=== PATIENT | female | born 1950 | race Two or more races ===

== ENCOUNTER 2025-08-26 20:04 | Inpatient (IN) | payer OTHER ==
[~2025-08-26] VITALS: Ht 157.5 cm; Wt 86.2 kg
--- NOTE | 2025-08-26 22:02 | NUR ---
SE LLAMA PACIENTE LAKESHIA REFIERE TIENE QUE IR AL SAI. SE ORIENTA A NOTIFICAR AL ESTAR DISPONIBLE PARA REALIZAR TRIAGE.
[2025-08-26] MEDS ORDERED: SYNTHROID125 MCG PO (22:28)
[2025-08-26] MEDS ORDERED: PLAVIX75 MG (22:29)
[2025-08-26] MEDS ORDERED: TOPROL XL25 M1 (22:31)
[2025-08-26] MEDS ORDERED: SYNJARDY 12.5-1 EAC1 PO (22:33)
[2025-08-26] MEDS ORDERED: MICARDIS HCT 41 EACH PO (22:34)
[2025-08-26] MEDS ORDERED: ALPHA LIPOIC A600 MG (22:34)
[2025-08-26] MEDS ORDERED: REGLAN5 MG/5 ML PO (22:34)
[2025-08-26] MEDS ORDERED: MICARDIS40 MG (22:34)
[2025-08-26] MEDS ORDERED: DEXILANT30 MG (22:35)
[2025-08-26] MEDS ORDERED: PEPCID20 MG PO (22:35)
[2025-08-26] MEDS ORDERED: LINZESS72 MCG PO (22:36)
[2025-08-26] MEDS ORDERED: SYMBICORT 16010.2 GM (22:36)
[2025-08-26] MEDS ORDERED: VITAL-D RX TAB1 EACH (22:36)
[2025-08-26] MEDS ORDERED: CELLCEPT500 MG (22:36)
[2025-08-26] MEDS ORDERED: MILLIPRED5 MG (22:37)
[2025-08-27 01:26] LABS: INR 1.0
--- NOTE | 2025-08-27 01:27 | NUR ---
SE ORIENTA A PACIENTE SOBRE TRATAMIENTO MEDICO, REFIERE ENTENDER. SE REALIZAN MUESTRAS DE LABORATORIO BAJO MEDIDAS ASEPTICAS. SE COORDINA CT. PACIENTE MANEJADA POR . PENDIENTE RE-EVALUACION MEDICA.
[2025-08-27 01:31] LABS: ALT/SGPT 17.0 U/L (12-78); AST/SGOT 8.0 U/L (15-37); BILIRUBIN TOTAL 0.33 mg/dL (0.3-1.2); BUN CREA RATIO 17.0 (7.0-25.0); CREATININE SERUM 0.82 mg/dL (0.55-1.02); GFR 68.53; GLOBULINA 4.6 G/DL (2.4-3.5); GLUCOSE FASTING 104.0 mg/dL (65-100); OSMOLALITY SERUM 280.0 MOSM/KG (275-295)
[2025-08-27 01:53] LABS: BASO % 0.5 % (0.1-1.2); EOS # 0.16 (0.04-0.54); EOS % 1.6 % (0.7-7.0); LYMPH # 2.65 (1.18-3.74); LYMPH % 27.1 % (19.3-53.1); MEAN PLATELET VOLUME 10.10 fl (9.4-12.4); MONO # 0.95 (0.24-0.82); MONO % 9.7 % (4.7-12.5); NEUT # 5.92 (1.56-6.13); NEUT % 60.7 % (34.0-71.1); RED CELL DISTRIBUTION WIDTH 15.1 % (11.6-14.4)
[2025-08-27 03:03] LABS: URINE APPEARANCE Clear; URINE BILIRRUBIN Negative (NEGATIVE); URINE BLOOD Small; URINE COLOR Yellow; URINE KETONE Negative (NEGATIVE); URINE LEUKOCYTE Moderate; URINE NITRATE Negative; URINE PROTEIN Negative (NEGATIVE); URINE UROBILINOGEN 0.2 E.U./dl
[2025-08-27 03:04] LABS: URINE BACTERIA 338.4 uL (0.0-1933); URINE EPITHELIAL CELLS 4.6 uL (0.0-38.8); URINE RBC 10.1 uL (0.0-20.8); URINE WBC 73.3 uL (0.0-23.2)
[2025-08-27 03:12] LABS: URINE CAST 0.14 uL (0.0-1.40); URINE GLUCOSE 250 MG/DL (NEGATIVE)
[2025-08-27] MEDS ORDERED: CIPROFLOXACIN IN 5 % DEXTROSE 200 ML IV SCH (05:43)
[2025-08-27] MEDS ORDERED: 0.9 % SODIUM CHLORIDE 1,000 ML IV ONE (05:45)
--- NOTE | 2025-08-27 08:08 | NUR ---
SE RECIBE PACIENTE ALERTA Y ORIENTADO X3. LA MISMA CANALIZADA EN BRAZO WILMER # 18 PATENTE Y OMER DE DOLOR BAJANDO CON UN 0.9NSS @ 125 ML/HR. EN ESPERA DE CONSULTA CON CIRUGIA DR. ANTONIO
[2025-08-27] MEDS ORDERED: METRONIDAZOLE/SODIUM CHLORIDE 500 MG/100 ML PIGGYBACK IV ONE (16:47)
[2025-08-27] MEDS ORDERED: 0.9 % SODIUM CHLORIDE 1,000 ML IV SCH (18:15)
[2025-08-27] MEDS ORDERED: DEXTROSE 50 % IN WATER 0.5 G/ML DISP.SYRIN IV PRN (18:30)
[2025-08-27] MEDS ORDERED: INSULIN LISPRO 1,000 UNIT/10 ML UNITS SUBCUTANEO PRN (18:30)
[2025-08-27] MEDS ORDERED: ACETAMINOPHEN 325 MG TABLET PO PRN (18:30)
[2025-08-27] MEDS ORDERED: ONDANSETRON HCL 4 MG in 0.9 % SODIUM CHLORIDE 50 ML IV PRN (18:30)
[2025-08-27] MEDS ORDERED: ENALAPRILAT DIHYDRATE 1.25 MG/ML VIAL IV PRN (18:30)
[2025-08-27] MEDS ORDERED: PIPERACILLIN/TAZOBACTAM SODIUM 3.375 GM in DEXTROSE 5 % IN WATER 100 ML IV SCH (19:50)
[2025-08-27 20:22] VITALS: BP 100/70
[2025-08-27 22:55] VITALS: BP 116/78; O2SAT 97
[2025-08-28 01:18] VITALS: BP 118/67; O2SAT 98
[2025-08-28 07:53] LABS: BASO % 0.6 % (0.1-1.2); EOS # 0.16 (0.04-0.54); EOS % 2.5 % (0.7-7.0); LYMPH # 1.82 (1.18-3.74); LYMPH % 28.3 % (19.3-53.1); MEAN PLATELET VOLUME 9.90 fl (9.4-12.4); MONO # 0.66 (0.24-0.82); MONO % 10.2 % (4.7-12.5); NEUT # 3.73 (1.56-6.13); NEUT % 57.9 % (34.0-71.1); RED CELL DISTRIBUTION WIDTH 15.1 % (11.6-14.4)
[2025-08-28 08:10] LABS: BUN CREA RATIO 15.0 (7.0-25.0); CREATININE SERUM 0.82 mg/dL (0.55-1.02); GFR 68.53; GLUCOSE FASTING 92.0 mg/dL (65-100); OSMOLALITY SERUM 288.0 MOSM/KG (275-295)
[2025-08-28] MEDS ORDERED: ENOXAPARIN SODIUM 30 MG/0.3 ML SYRINGE SUBCUTANEO SCH (09:00)
[2025-08-28 09:44] VITALS: BP 130/78; O2SAT 95
[2025-08-28 11:29] LABS: ERYTHROCYTE SEDIMENTATION RATE 52 mm/hr (0-30)
[2025-08-28] MEDS ORDERED: METOCLOPRAMIDE HCL 10 MG TABLET PO SCH (17:00)
[2025-08-28] MEDS ORDERED: AA 4.25%/CAL/LYTES/DEXT 5% 1,000 ML PERIFERAL SCH (17:00)
[2025-08-28] MEDS ORDERED: ACETAMINOPHEN 500 MG GEL..CAP PO PRN (17:15)
[2025-08-28 17:46] VITALS: BP 119/78; O2SAT 97
[2025-08-28 17:55] LABS: CHOL HDL RATIO 2.9 (0-5.0); HDL 53.0 mg/dl (40-60); LDL 81.0 mg/dl (0-130); VLDL 18.0 (0-39)
[2025-08-29 00:30] VITALS: BP 130/78; O2SAT 96
[2025-08-29] MEDS ORDERED: LEVOTHYROXINE SODIUM 125 MCG TABLET PO SCH (06:00)
[2025-08-29 08:49] VITALS: BP 142/83; O2SAT 96
[2025-08-29] MEDS ORDERED: METOPROLOL TARTRATE 25 MG TABLET PO SCH (09:00)
[2025-08-29] MEDS ORDERED: PREDNISONE 5 MG TABLET PO SCH (09:00)
[2025-08-29] MEDS ORDERED: CHOLECALCIFEROL (VITAMIN D3) 5,000 UNITS TABLET PO SCH (09:00)
[2025-08-29 16:00] VITALS: BP 124/86; O2SAT 96
[2025-08-30 17:58] VITALS: BP 121/75; O2SAT 94
[2025-08-31 02:18] VITALS: BP 125/71; O2SAT 97
[2025-08-31 08:13] LABS: BASO % 0.4 % (0.1-1.2); EOS # 0.16 (0.04-0.54); EOS % 2.1 % (0.7-7.0); LYMPH # 1.73 (1.18-3.74); LYMPH % 22.4 % (19.3-53.1); MEAN PLATELET VOLUME 10.20 fl (9.4-12.4); MONO # 0.87 (0.24-0.82); MONO % 11.3 % (4.7-12.5); NEUT # 4.89 (1.56-6.13); NEUT % 63.4 % (34.0-71.1); RED CELL DISTRIBUTION WIDTH 15.3 % (11.6-14.4)
[2025-08-31 08:54] LABS: ALT/SGPT 14.0 U/L (12-78); AST/SGOT 11.0 U/L (15-37); BILIRUBIN TOTAL 0.76 mg/dL (0.3-1.2); BUN CREA RATIO 21.0 (7.0-25.0); CREATININE SERUM 0.89 mg/dL (0.55-1.02); GFR 62.35; GLOBULINA 3.5 G/DL (2.4-3.5); GLUCOSE FASTING 94.0 mg/dL (65-100); OSMOLALITY SERUM 281.0 MOSM/KG (275-295)
[2025-08-31 16:47] VITALS: BP 142/85; O2SAT 96
[2025-08-31] MEDS ORDERED: AA 2.36%/D6.8W/FAT/E-LYTES NO9 1,440 ML IV SCH (17:00)
[2025-09-01 00:45] VITALS: BP 113/72; O2SAT 97
[2025-09-01 08:00] VITALS: BP 138/68; O2SAT 95
[2025-09-01] MEDS ORDERED: CHOLECALCIFEROL (VITAMIN D3) 5,000 UNITS TABLET PO SCH (09:00)
[2025-09-01 16:56] VITALS: BP 110/64; O2SAT 95
[2025-09-02 00:36] VITALS: BP 133/76; O2SAT 97
[2025-09-02 06:57] LABS: BASO % 0.4 % (0.1-1.2); EOS # 0.15 (0.04-0.54); EOS % 2.0 % (0.7-7.0); LYMPH # 1.47 (1.18-3.74); LYMPH % 20.1 % (19.3-53.1); MEAN PLATELET VOLUME 10.50 fl (9.4-12.4); MONO # 0.69 (0.24-0.82); MONO % 9.4 % (4.7-12.5); NEUT # 4.97 (1.56-6.13); NEUT % 67.8 % (34.0-71.1); RED CELL DISTRIBUTION WIDTH 15.2 % (11.6-14.4)
[2025-09-02 07:20] LABS: ALT/SGPT 12.0 U/L (12-78); AST/SGOT 14.0 U/L (15-37); BILIRUBIN TOTAL 0.43 mg/dL (0.3-1.2); BUN CREA RATIO 20.0 (7.0-25.0); CREATININE SERUM 0.66 mg/dL (0.55-1.02); GFR 88.03; GLOBULINA 3.2 G/DL (2.4-3.5); GLUCOSE FASTING 110.0 mg/dL (65-100); OSMOLALITY SERUM 286.0 MOSM/KG (275-295)
[2025-09-02] MEDS ORDERED: ENOXAPARIN SODIUM 40 MG/0.4 ML SYRINGE SUBCUTANEO SCH (09:00)
[2025-09-02 11:02] VITALS: BP 138/81; O2SAT 98
[2025-09-02] MEDS ORDERED: POTASSIUM CHLORIDE IN WATER 100 ML IV NR (17:00)
[2025-09-02 18:13] VITALS: BP 132/82; O2SAT 97
[2025-09-03 01:07] VITALS: BP 130/74; O2SAT 99
[2025-09-03 07:51] VITALS: BP 129/80; O2SAT 97
[2025-09-03] MEDS ORDERED: DIPHENHYDRAMINE HCL 50 MG/ML VIAL 1ML IV NR (13:15)
[2025-09-03] MEDS ORDERED: METHYLPREDNISOLONE SOD SUCC 40 MG VIAL IV NR (13:15)
[2025-09-03] MEDS ORDERED: DIATRIZOATE MEGLUMINE, SODIUM 30 ML BOTTLE PO NR (14:15)
[2025-09-03 16:00] VITALS: BP 141/82; O2SAT 97
[2025-09-04 00:30] VITALS: BP 146/81; O2SAT 96
[2025-09-04 07:50] LABS: BASO % 0.3 % (0.1-1.2); EOS # 0.00 (0.04-0.54); EOS % 0.0 % (0.7-7.0); LYMPH # 0.58 (1.18-3.74); LYMPH % 9.3 % (19.3-53.1); MEAN PLATELET VOLUME 10.40 fl (9.4-12.4); MONO # 0.22 (0.24-0.82); MONO % 3.5 % (4.7-12.5); NEUT # 5.41 (1.56-6.13); NEUT % 86.6 % (34.0-71.1); RED CELL DISTRIBUTION WIDTH 14.7 % (11.6-14.4)
[2025-09-04 08:26] LABS: ALT/SGPT 11.0 U/L (12-78); AST/SGOT 8.0 U/L (15-37); BILIRUBIN TOTAL 0.36 mg/dL (0.3-1.2); BUN CREA RATIO 16.0 (7.0-25.0); CREATININE SERUM 0.63 mg/dL (0.55-1.02); GFR 92.89; GLOBULINA 3.6 G/DL (2.4-3.5); GLUCOSE FASTING 163.0 mg/dL (65-100); OSMOLALITY SERUM 286.0 MOSM/KG (275-295)
[2025-09-04 08:28] VITALS: BP 136/82; O2SAT 94
[2025-09-04 16:00] VITALS: BP 147/84; O2SAT 99
[2025-09-05 01:32] VITALS: BP 129/80; O2SAT 97
[2025-09-05] MEDS ORDERED: DEXTROSE 5%-WATER 100ML IV.SOLN ONE (04:15)
[2025-09-05 08:19] VITALS: BP 132/73; O2SAT 95
[2025-09-05 16:00] VITALS: BP 129/74; O2SAT 96
[2025-09-06 00:35] VITALS: BP 137/75; O2SAT 97
[2025-09-06 07:14] LABS: BASO % 0.4 % (0.1-1.2); EOS # 0.13 (0.04-0.54); EOS % 1.7 % (0.7-7.0); LYMPH # 1.37 (1.18-3.74); LYMPH % 18.4 % (19.3-53.1); MEAN PLATELET VOLUME 10.60 fl (9.4-12.4); MONO # 0.80 (0.24-0.82); MONO % 10.8 % (4.7-12.5); NEUT # 5.09 (1.56-6.13); NEUT % 68.4 % (34.0-71.1); RED CELL DISTRIBUTION WIDTH 14.7 % (11.6-14.4)
[2025-09-06 07:23] LABS: ERYTHROCYTE SEDIMENTATION RATE 116 mm/hr (0-30)
[2025-09-06 07:45] LABS: INR 1.02
[2025-09-06 07:52] LABS: ALT/SGPT 14.0 U/L (12-78); AST/SGOT 12.0 U/L (15-37); BILIRUBIN TOTAL 0.52 mg/dL (0.3-1.2); BILIRUBIN,CONJUGATED 0.11 mg/dL (0.0-0.2); BUN CREA RATIO 15.0 (7.0-25.0); CHOL HDL RATIO 4.0 (0-5.0); CREATININE SERUM 0.68 mg/dL (0.55-1.02); GFR 85.05; GLOBULINA 3.8 G/DL (2.4-3.5); GLUCOSE FASTING 115.0 mg/dL (65-100); HDL 43.0 mg/dl (40-60); LDL 99.0 mg/dl (0-130); OSMOLALITY SERUM 283.0 MOSM/KG (275-295); VLDL 28.0 (0-39)
[2025-09-06 07:59] LABS: UREA CLEARANCE 27.8 ML/MIN
[2025-09-06] MEDS ORDERED: POTASSIUM CHLORIDE 20MEQ/100ML H2O PB IV NR (17:00)
[2025-09-06] MEDS ORDERED: LORATADINE 10 MG TABLET PO SCH (17:00)
[2025-09-06 17:51] VITALS: BP 133/85; O2SAT 96
[2025-09-07 02:27] VITALS: BP 163/94; O2SAT 97
[2025-09-07 05:00] VITALS: BP 150/80
[2025-09-07 08:00] VITALS: BP 141/82; O2SAT 95
[2025-09-07 16:00] VITALS: BP 128/87; O2SAT 94
[2025-09-07] MEDS ORDERED: AA 5 %/CALCIUM/LYTES/DEXT 20 % 2,000 ML CENTRAL SCH (17:00)
[2025-09-07] MEDS ORDERED: FAT EMULSIONS 250 ML IV SCH (21:00)
[2025-09-07 23:44] VITALS: BP 136/84; O2SAT 96
[2025-09-08 08:00] VITALS: BP 134/78; O2SAT 96
[2025-09-08 16:00] VITALS: BP 139/74; O2SAT 95
[2025-09-09 00:30] VITALS: BP 134/78; O2SAT 97
[2025-09-09 08:49] VITALS: BP 127/75; O2SAT 95
[2025-09-09] MEDS ORDERED: BENZONATATE 200 MG CAPSULE PO PRN (12:15)
[2025-09-09] MEDS ORDERED: GUAIFEN/DEXTROMETHORPHAN/PE 10 ML BLIST.PACK PO PRN (12:15)
[2025-09-09 16:09] VITALS: BP 155/94; O2SAT 98
[2025-09-10 00:27] VITALS: BP 123/75; O2SAT 96
[2025-09-10 06:11] LABS: BASO % 1.0 % (0.1-1.2); EOS # 0.23 (0.04-0.54); EOS % 4.6 % (0.7-7.0); LYMPH # 1.38 (1.18-3.74); LYMPH % 27.3 % (19.3-53.1); MEAN PLATELET VOLUME 11.30 fl (9.4-12.4); MONO # 0.55 (0.24-0.82); MONO % 10.9 % (4.7-12.5); NEUT # 2.83 (1.56-6.13); NEUT % 56.0 % (34.0-71.1); RED CELL DISTRIBUTION WIDTH 14.8 % (11.6-14.4)
[2025-09-10 06:52] LABS: ALT/SGPT 11.0 U/L (12-78); AST/SGOT 8.0 U/L (15-37); BILIRUBIN TOTAL 0.53 mg/dL (0.3-1.2); BUN CREA RATIO 21.0 (7.0-25.0); CREATININE SERUM 0.68 mg/dL (0.55-1.02); GFR 85.05; GLOBULINA 3.2 G/DL (2.4-3.5); GLUCOSE FASTING 81.0 mg/dL (65-100); OSMOLALITY SERUM 290.0 MOSM/KG (275-295)
[2025-09-10 08:20] VITALS: BP 131/83; O2SAT 96
[2025-09-10] MEDS ORDERED: SODIUM CHLORIDE 0.45 % 1,000 ML IV SCH (11:30)
[2025-09-10] MEDS ORDERED: POTASSIUM CHLORIDE IN WATER 100 ML IV NR (13:00)
[2025-09-10] MEDS ORDERED: DEXTROSE 5%-WATER 100ML IV.SOLN ONE (14:56)
[2025-09-10 15:30] VITALS: BP 132/84; O2SAT 96
[2025-09-11 00:28] VITALS: BP 148/71; O2SAT 97
[2025-09-11 08:49] VITALS: BP 143/80; O2SAT 98
[2025-09-11] MEDS ORDERED: METHYLPREDNISOLONE SOD SUCC 40 MG VIAL IV SCH (15:09)
[2025-09-11] MEDS ORDERED: DIPHENHYDRAMINE HCL 50 MG in 0.9 % SODIUM CHLORIDE 50 ML IV SCH (15:10)
[2025-09-11 15:58] VITALS: BP 130/81; O2SAT 95
[2025-09-12 00:07] VITALS: BP 170/80; O2SAT 96
[2025-09-12 01:19] VITALS: BP 132/81
[2025-09-12 08:00] VITALS: BP 150/75; O2SAT 96
[2025-09-12] MEDS ORDERED: DIATRIZOATE MEGLUMINE, SODIUM 30 ML BOTTLE PO NR (08:00)
[2025-09-12 08:18] LABS: BASO % 0.4 % (0.1-1.2); EOS # 0.00 (0.04-0.54); EOS % 0.0 % (0.7-7.0); LYMPH # 0.50 (1.18-3.74); LYMPH % 9.1 % (19.3-53.1); MEAN PLATELET VOLUME 11.10 fl (9.4-12.4); MONO # 0.06 (0.24-0.82); MONO % 1.1 % (4.7-12.5); NEUT # 4.88 (1.56-6.13); NEUT % 89.0 % (34.0-71.1); RED CELL DISTRIBUTION WIDTH 15.0 % (11.6-14.4)
[2025-09-12 08:42] LABS: ALT/SGPT 15.0 U/L (12-78); AST/SGOT 21.0 U/L (15-37); BILIRUBIN TOTAL 0.47 mg/dL (0.3-1.2); BUN CREA RATIO 12.0 (7.0-25.0); CREATININE SERUM 0.66 mg/dL (0.55-1.02); GFR 88.03; GLOBULINA 3.8 G/DL (2.4-3.5); GLUCOSE FASTING 149.0 mg/dL (65-100); OSMOLALITY SERUM 284.0 MOSM/KG (275-295)
[2025-09-12 16:00] VITALS: BP 156/88; O2SAT 98
[2025-09-13 00:10] VITALS: BP 145/83; O2SAT 98
[2025-09-13 08:31] VITALS: BP 150/93; O2SAT 98
[2025-09-13 16:59] VITALS: BP 133/82; O2SAT 95
[2025-09-14 00:30] VITALS: BP 146/78; O2SAT 98
[2025-09-14 08:39] VITALS: BP 125/78; O2SAT 96
[2025-09-14] MEDS ORDERED: PATIENTS OWN MEDICATION (MEDICAMENTO EN PISO) PO SCH ×2 (09:00→21:00)
[2025-09-14 16:52] VITALS: BP 142/92; O2SAT 98
[2025-09-15 00:30] VITALS: BP 134/72; O2SAT 98
[2025-09-15 08:42] VITALS: BP 144/76; O2SAT 97
[2025-09-15 15:56] VITALS: BP 131/83; O2SAT 97
[2025-09-16 02:09] VITALS: BP 134/85; O2SAT 95
[2025-09-16 06:50] LABS: BASO % 0.8 % (0.1-1.2); EOS # 0.26 (0.04-0.54); EOS % 4.2 % (0.7-7.0); LYMPH # 1.49 (1.18-3.74); LYMPH % 24.1 % (19.3-53.1); MEAN PLATELET VOLUME 11.20 fl (9.4-12.4); MONO # 0.71 (0.24-0.82); MONO % 11.5 % (4.7-12.5); NEUT # 3.65 (1.56-6.13); NEUT % 59.1 % (34.0-71.1); RED CELL DISTRIBUTION WIDTH 14.7 % (11.6-14.4)
[2025-09-16 07:18] LABS: ALT/SGPT 12.0 U/L (12-78); AST/SGOT 8.0 U/L (15-37); BILIRUBIN TOTAL 0.63 mg/dL (0.3-1.2); BUN CREA RATIO 12.0 (7.0-25.0); CREATININE SERUM 0.86 mg/dL (0.55-1.02); GFR 64.86; GLOBULINA 3.4 G/DL (2.4-3.5); GLUCOSE FASTING 84.0 mg/dL (65-100); OSMOLALITY SERUM 285.0 MOSM/KG (275-295)
[2025-09-16 07:56] LABS: EOSINOPHIL MAN 2.0 %; LYMPHOCYTE MAN 25.0 %; MONOCYTE MAN 9.0 %; NEUTROPHILS MAN 62.0 %
[2025-09-16 08:00] VITALS: BP 160/80; O2SAT 98
[2025-09-16] MEDS ORDERED: POTASSIUM CHLORIDE 20MEQ/100ML H2O PB IV NR (12:00)
[2025-09-16 16:00] VITALS: BP 127/84; O2SAT 95
[2025-09-16] MEDS ORDERED: AMINO ACIDS/PROTEIN HYDROLYS 30 ML BLIST.PACK PO SCH (17:00)
[2025-09-17] VITALS: BP 136/80; O2SAT 98
[2025-09-17 08:00] VITALS: BP 137/73; O2SAT 96
[2025-09-17 16:23] VITALS: BP 124/81; O2SAT 95
[2025-09-18 00:51] VITALS: BP 123/80; O2SAT 96
[2025-09-18 09:05] VITALS: BP 141/97; O2SAT 96
[2025-09-18] MEDS ORDERED: ZINC OXIDE 30 GM TUBE TOP SCH (17:00)
[2025-09-18 17:21] VITALS: BP 122/75; O2SAT 96
[2025-09-18 23:57] VITALS: BP 136/81; O2SAT 97
[2025-09-19 09:19] VITALS: BP 129/82; O2SAT 96
[2025-09-19 14:23] LABS: BASO % 0.6 % (0.1-1.2); EOS # 0.23 (0.04-0.54); EOS % 2.7 % (0.7-7.0); LYMPH # 0.72 (1.18-3.74); LYMPH % 8.6 % (19.3-53.1); MEAN PLATELET VOLUME 11.50 fl (9.4-12.4); MONO # 0.64 (0.24-0.82); MONO % 7.6 % (4.7-12.5); NEUT # 6.74 (1.56-6.13); NEUT % 80.1 % (34.0-71.1); RED CELL DISTRIBUTION WIDTH 15.1 % (11.6-14.4)
[2025-09-19 14:33] LABS: URINE BILIRRUBIN NEGATIVE (NEGATIVE); URINE BLOOD LARGE; URINE GLUCOSE NEGATIVE (NEGATIVE); URINE KETONE NEGATIVE (NEGATIVE); URINE LEUKOCYTE MODERATE; URINE NITRATE NEGATIVE; URINE PROTEIN NEGATIVE (NEGATIVE); URINE UROBILINOGEN 0.2 E.U./dl
[2025-09-19 14:40] LABS: URINE APPEARANCE CLOUDY; URINE COLOR YELLOW
[2025-09-19 14:41] LABS: URINE BACTERIA MANY; URINE CRYSTALS FEW /HPF; URINE MUCUS SCANT; URINE WBC LOADED /hpf
[2025-09-19 14:42] LABS: URINE RBC 26-35 /HPF
[2025-09-19 14:53] LABS: ALT/SGPT 15.0 U/L (12-78); AST/SGOT 13.0 U/L (15-37); BILIRUBIN TOTAL 0.62 mg/dL (0.3-1.2); BUN CREA RATIO 24.0 (7.0-25.0); CREATININE SERUM 0.78 mg/dL (0.55-1.02); GFR 72.6; GLOBULINA 3.8 G/DL (2.4-3.5); GLUCOSE FASTING 123.0 mg/dL (65-100); OSMOLALITY SERUM 287.0 MOSM/KG (275-295)
[2025-09-19 15:09] LABS: INR 1.05
[2025-09-19 17:00] VITALS: BP 132/86; O2SAT 98
[2025-09-20 00:43] VITALS: BP 141/72; O2SAT 99
[2025-09-20 08:00] VITALS: BP 138/80; O2SAT 96
[2025-09-20 16:44] VITALS: BP 142/88; O2SAT 97
[2025-09-21] MEDS ORDERED: HYDROCORTISONE SODIUM SUCC/PF 100 MG VIAL IV SCH (01:00)
[2025-09-21 01:04] VITALS: BP 134/84; O2SAT 96
[2025-09-21] MEDS ORDERED: HYDROCORTISONE SODIUM SUCC/PF 50 MG/ML ML IV SCH (06:00)
[2025-09-21 08:00] VITALS: BP 138/90; O2SAT 97
[2025-09-21] MEDS ORDERED: LIDOCAINE HCL 1%/EPINEPHRINE 20ML VIAL IJ ONE (14:00)
[2025-09-21] MEDS ORDERED: BUPIVACAINE HCL 30 ML VIAL IJ ONE (14:00)
[2025-09-21 17:41] VITALS: BP 116/72; O2SAT 91
[2025-09-21] MEDS ORDERED: MORPHINE SULFATE 4 MG/ML CARTRIDGE IV SCH (18:00)
[2025-09-22 00:30] VITALS: BP 131/79; O2SAT 98
[2025-09-22 08:36] LABS: BASO % 0.2 % (0.1-1.2); EOS # 0.01 (0.04-0.54); EOS % 0.1 % (0.7-7.0); LYMPH # 0.61 (1.18-3.74); LYMPH % 5.9 % (19.3-53.1); MEAN PLATELET VOLUME 11.30 fl (9.4-12.4); MONO # 0.88 (0.24-0.82); MONO % 8.5 % (4.7-12.5); NEUT # 8.77 (1.56-6.13); NEUT % 85.0 % (34.0-71.1); RED CELL DISTRIBUTION WIDTH 15.2 % (11.6-14.4)
[2025-09-22] MEDS ORDERED: PREDNISONE 10 MG TABLET PO SCH (09:00)
[2025-09-22 09:18] LABS: ALT/SGPT 13.0 U/L (12-78); AST/SGOT 10.0 U/L (15-37); BILIRUBIN TOTAL 0.66 mg/dL (0.3-1.2); BUN CREA RATIO 30.0 (7.0-25.0); CREATININE SERUM 0.71 mg/dL (0.55-1.02); GFR 80.92; GLOBULINA 3.3 G/DL (2.4-3.5); GLUCOSE FASTING 113.0 mg/dL (65-100); OSMOLALITY SERUM 287.0 MOSM/KG (275-295)
[2025-09-22 09:33] VITALS: BP 118/72; O2SAT 95
[2025-09-22 16:00] VITALS: BP 112/76; O2SAT 95
[2025-09-22] MEDS ORDERED: IRON FUM,PS/FOLIC/BCOMP,C NO.9 1 CAP CAPSULE PO SCH (17:00)
[2025-09-22] MEDS ORDERED: AMINO ACIDS 1 EACH TABLET PO SCH (17:00)
[2025-09-23 01:21] VITALS: BP 112/73; O2SAT 96
[2025-09-23 08:00] VITALS: BP 119/80; O2SAT 96
[2025-09-23] MEDS ORDERED: PREDNISONE 5 MG TABLET PO SCH (09:00)
[2025-09-23 17:04] VITALS: BP 120/79; O2SAT 98
[2025-09-23] MEDS ORDERED: MORPHINE SULFATE 4 MG/ML CARTRIDGE IV PRN (23:45)
[2025-09-24] VITALS: BP 120/70; O2SAT 99
[2025-09-24 08:00] VITALS: BP 145/81; O2SAT 97
[2025-09-24] MEDS ORDERED: PREDNISONE 5 MG TABLET PO SCH (09:00)
[2025-09-24] MEDS ORDERED: ACETAMINOPHEN 500 MG GEL..CAP PO PRN (13:15)
[2025-09-24] MEDS ORDERED: KETOROLAC TROMETHAMINE 30 MG VIAL IV STA (13:18)
[2025-09-24 16:30] VITALS: BP 139/82; O2SAT 96
[2025-09-24] MEDS ORDERED: POLYETHYLENE GLYCOL 3350 17 GM BLIST.PACK PO SCH (17:00)
[2025-09-24] MEDS ORDERED: METOCLOPRAMIDE HCL 10 MG TABLET PO SCH (17:00)
[2025-09-24] MEDS ORDERED: KETOROLAC TROMETHAMINE 30 MG VIAL IV SCH (21:00)
[2025-09-25 00:42] VITALS: BP 146/83; O2SAT 96
[2025-09-25 09:00] VITALS: BP 138/88; O2SAT 96
[2025-09-25 16:47] VITALS: BP 138/92; O2SAT 96
[2025-09-26 01:06] VITALS: BP 137/80; O2SAT 96
[2025-09-26 08:00] VITALS: BP 132/83; O2SAT 97
[2025-09-26 16:40] VITALS: BP 130/83; O2SAT 98
[2025-09-26] MEDS ORDERED: BENZONATATE 200 MG CAPSULE PO SCH (17:00)
[2025-09-27 00:30] VITALS: BP 138/79; O2SAT 97
[2025-09-27 08:00] VITALS: BP 151/98; O2SAT 97
[2025-09-27 08:40] LABS: BASO % 0.4 % (0.1-1.2); EOS # 0.45 (0.04-0.54); EOS % 4.8 % (0.7-7.0); LYMPH # 1.56 (1.18-3.74); LYMPH % 16.7 % (19.3-53.1); MEAN PLATELET VOLUME 10.50 fl (9.4-12.4); MONO # 0.87 (0.24-0.82); MONO % 9.3 % (4.7-12.5); NEUT # 6.36 (1.56-6.13); NEUT % 68.4 % (34.0-71.1); RED CELL DISTRIBUTION WIDTH 15.6 % (11.6-14.4)
[2025-09-27 09:34] LABS: BUN CREA RATIO 19.0 (7.0-25.0); CREATININE SERUM 0.79 mg/dL (0.55-1.02); GFR 71.34; GLUCOSE FASTING 93.0 mg/dL (65-100); OSMOLALITY SERUM 285.0 MOSM/KG (275-295)
[2025-09-27] MEDS ORDERED: INTEGRA PLUS C1 EACH PO (13:26)
[2025-09-27] MEDS ORDERED: PREDNISONE 5MG PO (13:27)
== END 2025-09-27 15:13 | disposition home or self-care (01) | DRG 982 ==
LOC: ER 20:05 → SURH 08-27 20:15
PROVIDERS: General Practice; Internal Medicine; Internal Medicine Infectious Disease; Surgery; ADMIT Internal Medicine; ATTEND Internal Medicine
PROC: BW21ZZZ Computerized Tomography (CT Scan) of Abdomen and Pelvis (ICD-10-PCS; 2025-08-26)
PROC: 02HV33Z Insertion of Infusion Device into Superior Vena Cava, Percutaneous Approach (ICD-10-PCS; 2025-08-31)
PROC: BW21YZZ Computerized Tomography (CT Scan) of Abdomen and Pelvis using Other Contrast (ICD-10-PCS; 2025-09-03)
PROC: BW21YZZ Computerized Tomography (CT Scan) of Abdomen and Pelvis using Other Contrast (ICD-10-PCS; 2025-09-11)
PROC: 0D1L4Z4 Bypass Transverse Colon to Cutaneous, Percutaneous Endoscopic Approach (ICD-10-PCS; principal; 2025-09-21 23:45)
DX: N32.1 Vesicointestinal fistula (principal); E27.40 Unspecified adrenocortical insufficiency; K57.92 Diverticulitis of intestine, part unspecified, without perforation or abscess without bleeding; N30.90 Cystitis, unspecified without hematuria; D64.9 Anemia, unspecified; E87.6 Hypokalemia; E11.9 Type 2 diabetes mellitus without complications; Z79.4 Long term (current) use of insulin; I10 Essential (primary) hypertension; E03.9 Hypothyroidism, unspecified; M32.9 Systemic lupus erythematosus, unspecified; Z79.52 Long term (current) use of systemic steroids